=== PATIENT | male | born 1995 ===

== ENCOUNTER 2022-10-29 10:13 | Outpatient (CLI) | payer BC, SELFPAY ==
[2022-11-02 04:25] LABS: Alpha-1-Antitrypsin, QN 140 mg/dL (83-199)
== END 2022-10-29 10:14 | disposition home or self-care (01) ==
LOC: ANHGOSHLAB 10:15
PROVIDERS: PCP Family Medicine; Visit Provider Family Medicine
DX: Z83.49 Family history of other endocrine, nutritional and metabolic diseases (principal)
CPT/HCPCS: 36415; 82103